=== PATIENT | female | born 1965 | race Caucasian/White ===

== ENCOUNTER 2016-11-16 03:42 | Emergency (ER) | payer OTHER ==
[~2016-11-16 03:42] MED LIST: DARVOCET-N 1001 TAB PO; FLEXERIL PO; IBUPROFEN PO; KEFLEX PO; NAPROXEN PO; NO MEDICATIONS
== END 2016-11-16 03:44 | disposition home or self-care (01) ==
LOC: SED 03:42
DX: N39.0 Urinary tract infection, site not specified (principal); F17.200 Nicotine dependence, unspecified, uncomplicated
CPT/HCPCS: 99282